=== PATIENT | female | born 1935 | race Caucasian/White ===

== ENCOUNTER → 2016-07-06 | Outpatient (CLI) | payer MEDICARE, OTHER | END | disposition home or self-care (01) | LOC: CFH 10:36 | PROVIDERS: ATTEND Family Medicine | DX: Z13.820 Encounter for screening for osteoporosis (principal); M85.89 Other specified disorders of bone density and structure, multiple sites; N95.9 Unspecified menopausal and perimenopausal disorder | CPT/HCPCS: 77080 ==

== ENCOUNTER 2018-08-31 20:28 | Emergency (ER) | payer MEDICARE ==
[~2018-08-31] VITALS: Ht 165.1 cm; Wt 70.0 kg
--- NOTE | 2018-08-31 20:54 | NUR ---
VALDO. REPORT RECEIVED FROM EMS. PT HAD GLF TODAY BUT PT DIDN'T REMEMBER D/T DEMENTIA. PT C/O BILATERAL KNEE PAIN. NO REDNESS/TRAUMA NOTED ON BOTHE KNEES. PT'S AOX1 AND IT IS HER BASELINE. BP/SPO2 MONITORS IN PLACE. CALL LIGHT WITHIN REACH. PA AT BEDSIDE TO ASSESS AT THIS TIME.
--- NOTE | 2018-08-31 20:55 | NUR ---
THIS RN CALLED SIGNIFICANT OTHER TO DISCUSS POC, BUT UNABLE TO REACH. PA/PUBLIC ADMINISTRATION TEACHER NOTIFIED.
--- NOTE | 2018-08-31 20:57 | NUR ---
THIS RN CALLED SW WELL. SW WAS NOT ABLE TO EVALUATE AT THIS TIME. PT NEEDS TO BE ADM TILL CREDIT OFFICE MANAGER COMING ON SUNDAY.
[2018-08-31 21:11] LABS: BASOPHILS # (AUTO) 0.06 x10^3/uL (0-0.1); BASOPHILS % (AUTO) 1 % (0-1); EOSINOPHILS # (AUTO) 0.24 x10^3/uL (0-0.4); EOSINOPHILS % (AUTO) 3 % (1-7); LYMPHOCYTES # (AUTO) 1.41 x10^3/uL (1-3.4); LYMPHOCYTES % (AUTO) 15 % (22-44); MD NO; MEAN PLATELET VOLUME 7.1 fL (7.4-10.4); MONOCYTES # (AUTO) 0.92 x10^3/uL (0.2-0.8); MONOCYTES % (AUTO) 10 % (2-9); NEUTROPHILS # (AUTO) 6.78 x10^3/uL (1.8-6.8); NEUTROPHILS % (AUTO) 72 % (42-75); PLATELET COUNT 316 x10^3/uL (130-400); RED BLOOD COUNT 4.21 x10^6/uL (3.82-5.3); RED CELL DISTRIBUTION WIDTH 13.5 % (9.6-15.2)
--- NOTE | 2018-08-31 21:21 | NUR ---
PT STRAIGHT CATH'S USING STERILE TECHNIQUE BY THIS RN. PT TOLERATED WELL. THIS RN WALKED TO LAB.
[2018-08-31 21:22] LABS: INTERNATIONAL NORMALIZED RATIO 0.96 (0.93-1.1); PROTHROMBIN TIME 10.1 Seconds (9.6-11.5)
[2018-08-31 21:23] LABS: ALANINE AMINOTRANSFERASE 16 U/L (12-78); ALBUMIN 3.8 g/dL (3.4-5.0); ANION GAP 7 mmol/L (5-15); CALCIUM 8.9 mg/dL (8.5-10.1); CHLORIDE 103 mmol/L (98-107); CREATININE 1.05 mg/dL (0.55-1.02)
[2018-08-31 21:26] LABS: ALKALINE PHOSPHATASE 73 U/L (45-117); BILIRUBIN,TOTAL 0.7 mg/dL (0.2-1.0); TOTAL PROTEIN 7.2 g/dL (6.4-8.2)
[2018-08-31 21:33] LABS: MICROSCOPIC AUTO
[2018-08-31 21:44] LABS: CULTURE INDICATED? YES
[2018-08-31] MEDS ORDERED: CEFTRIAXONE PMX 1GM/50ML 50 ML IVPB ONE (22:00)
[2018-08-31] MEDS ORDERED: CEFTRIAXONE PMX 1GM/50ML 50 ML ONE (22:07)
--- NOTE | 2018-08-31 22:14 | NUR ---
PT AMB TO BR AND BACK TO ROOM WITH STEADY GAIT.
--- NOTE | 2018-08-31 22:31 | NUR ---
ABX INFUSING. NO BLOOD CULTURE NEEDS PER EDMD. PT TOLERATED WELL.
[2018-08-31 22:33] VITALS: BP 128/80
--- NOTE | 2018-08-31 22:36 | NUR ---
PT'S HASBAND SHOWED UP HERE. PA/EDMD CANCELED ADM ORDER.
--- NOTE | 2018-08-31 23:17 | NUR ---
PT AND PT'S GIVEN DC INSTRUCTIONS AND SCRIPT. PT AND PT'S EDUCATED REGARDING DC MEDICATION. PT AMB TO DC WITH STEADY GAIT. NO ACUTE DISTRESS AT DC.
== END 2018-08-31 23:18 | disposition home or self-care (01) ==
LOC: ED 21:39 → EDIP 21:59 → UNDOADMIN 21:59 → ED 23:18
DX: N30.00 Acute cystitis without hematuria (principal); G30.1 Alzheimer's disease with late onset; F02.81 Dementia in other diseases classified elsewhere, unspecified severity, with behavioral disturbance
CPT/HCPCS: 36415; 70450; 80053; 81001; 85025; 85610; 85730; 87077; 87086; 87186; 93005; 96365; 99284; J0696